=== PATIENT | male | born 1965 | race Caucasian/White ===

== ENCOUNTER 2020-11-04 07:52 | Day surgery (SDC) | payer OTHER ==
[~2020-11-04] VITALS: Ht 195.6 cm; Wt 123.5 kg
[~2020-11-04 07:52] MED LIST: IBUP200; META400 PO; NAPR500 PO; OXYACE5T PO; PROM25 PO; RXHYDACE PO
[2020-11-04] MEDS ORDERED: GABA400 PO (08:16)
[2020-11-04] MEDS ORDERED: MELO7.5 PO (08:16)
[2020-11-04] MEDS ORDERED: TERB250 PO (08:17)
[2020-11-04] MEDS ORDERED: IBUP800 PO (08:17)
[2020-11-04] MEDS ORDERED: MEMANTINE HCL PO (08:17)
--- NOTE | 2020-11-04 08:45 | NUR ---
History, Chart, Medications and Allergies reviewed before start of procedure. Lungs clear T/O to Auscultation. Patient confirms NPO status and agrees with scheduled surgery. Pre-Op teaching done. Pt verbalizes understanding. Patient states colon prep results clear.
--- NOTE | 2020-11-04 10:38 | NUR ---
11/04/20 Rachel Talley History, Chart, Medications and Allergies reviewed before start of procedure.PATIENT DETERMINED TO BE ASA APPROPRIATE FOR PROPOFOL SEDATION PRIOR TO START OF PROCEDURE BY .MONITOR INTACT WITH CONTINUOUS PULSE OXIMETRY AND INTERMITTENT BP.3-LEAD EKG REVIEWED WITH PHYSICIAN PRIOR TO START OF PROCEDURE.O2 VIA N/C INTACT THROUGHOUT SEDATION/PROCEDURE.
--- NOTE | 2020-11-04 11:06 | NUR ---
Patient up to Ambulate independently. Gait steady. Discharge instructions reviewed with patient. Patient verbalizes understanding. Copy given to patient to take home. Discharged via wheelchair to private car for ride home.
== END 2020-11-04 23:15 | disposition home or self-care (01) ==
LOC: ORSCMMR 07:52 → ORD 09:30 → ORSCMMR 09:30
DX: Z12.11 Encounter for screening for malignant neoplasm of colon (principal); K62.1 Rectal polyp; K63.5 Polyp of colon; K57.30 Diverticulosis of large intestine without perforation or abscess without bleeding; I10 Essential (primary) hypertension
CPT/HCPCS: 88305; J2704; J7120

== ENCOUNTER 2020-12-03 19:49 | Emergency (ER) | payer OTHER ==
[~2020-12-03] VITALS: Ht 172.7 cm; Wt 131.5 kg
[~2020-12-03 19:49] MED LIST changes: +GABA400 PO; +IBUP800 PO; +MELO7.5 PO; +MEMANTINE HCL PO; +TERB250 PO
[2020-12-03 20:10] LABS: Calcium, Ionized (POC) 1.09 mmol/L (1.10-1.46); Chloride (POC) 100 mmol/L (98-108); Creatinine (POC) 0.8 mg/dL (0.8-1.3); Glucose (ISTAT POC) 92 mg/dL (70-99); Hemoglobin (POC) 14.6 g/dL (13.5-17.5); Potassium (POC) 3.7 mmol/L (3.5-5.5); Sodium (POC) 136 mmol/L (135-148); Total CO2 (POC) 29 mmol/L (21-32)
[2020-12-03 20:25] LABS: BASOPHILS ABSOLUTE AUTO 0.05 K/mm3 (0.00-0.23); BASOPHILS PERCENT AUTO 1 % (0-2); EOSINOPHILS ABSOLUTE AUTO 0.21 K/mm3 (0.00-0.68); EOSINOPHILS PERCENT AUTO 2 % (0-6); Hematocrit 44.2 % (37.0-53.0); Hemoglobin 15.3 g/dL (13.5-17.5); IMMATURE GRAN ABSOLUTE AUTO 0.04 K/mm3 (0.00-0.10); IMMATURE GRAN PERCENT AUTO 0 % (0-1); LYMPHOCYTES ABSOLUTE AUTO 2.58 K/mm3 (0.84-5.20); LYMPHOCYTES PERCENT AUTO 29 % (21-46); MONOCYTES ABSOLUTE AUTO 0.78 K/mm3 (0.16-1.47); MONOCYTES PERCENT AUTO 9 % (4-13); Mean Corpuscular HGB Conc 34.6 g/dL (31.5-36.5); Mean Corpuscular Volume 87 fL (80-100); Mean Platelet Volume 9.6 fL (9.1-12.4); NEUTROPHILS ABSOLUTE AUTO 5.25 K/mm3 (1.96-9.15); NEUTROPHILS PERCENT AUTO 59 % (41-73); Platelet Count 261 K/mm3 (150-400); RDW Coefficient Variation 13.1 % (11.7-14.2); RDW Standard Deviation 40.7 fL (35.1-46.3); White Blood Cell Count 8.91 K/mm3 (4.00-11.30)
[2020-12-03 20:29] LABS: Source, Urine Catheter
[2020-12-03 20:34] LABS: Appearance, Urine Clear (Clear); Bilirubin, Urine Neg (Neg); Blood, Urine Neg (Neg); Color, Urine Amber (P-Yellow); Glucose Qualitative, Urine Neg (Neg); Ketones, Urine 1+ (Neg); Leukocyte Esterase, Urine 1+ (Neg); Nitrite, Urine Neg (Neg); Protein, Urine 2+ (Neg); Specific Gravity, Urine 1.015 (1.003-1.022); Urobilinogen, Urine NORM (Normal); pH, Urine 6.5 (5.0-8.0)
[2020-12-03 20:37] LABS: Alanine Aminotransfer (ALT/SGP 18 U/L (12-78); Albumin, Blood 3.6 g/dL (3.4-5.0); Albumin/Globulin Ratio 0.9 (0.8-1.8); Alk Phos 104 U/L (50-136); Anion Gap 8 mmol/L (6-16); Aspartate Aminotrans (AST/SGOT 21 U/L (12-37); Bilirubin, Total 0.7 mg/dL (0.1-1.0); Blood Urea Nitrogen 8 mg/dL (8-24); Bun/Creatinine Ratio 10.4 (12.0-20.0); CO2, Blood 28 mmol/L (21-32); Chloride, Blood 104 mmol/L (98-108); Creatinine, Blood 0.77 mg/dL (0.60-1.20); Globulin, Blood 3.8 g/dL (2.2-4.0); Glomerular Filtration Rate >60 (60-); Glucose, Blood 90 mg/dL (70-99); Sodium, Blood 140 mmol/L (136-145); Total Protein, Blood 7.4 g/dL (6.4-8.2)
[2020-12-03 20:50] LABS: Bacteria Not Seen /hpf; Mucus Mod (0-Heavy); Red Blood Cells, Urine Not Seen /hpf (0-2); Squamous Epithelial Cells Not Seen /hpf (Few); White Blood Cells, Urine 0-2 /hpf (0-5)
[2020-12-03 22:05] LABS: Influenza A, PCR Negative (NEGATIVE); Influenza B, PCR Negative (NEGATIVE); Resp Syncytial Virus, PCR Negative (NEGATIVE); SARS-Cov-2 (COVID-19) PCR, MMC Negative (NEGATIVE)
== END 2020-12-03 22:05 | disposition short-term general hospital (02) ==
LOC: ER 19:49
PROVIDERS: Emergency Medicine
DX: G93.6 Cerebral edema (principal); R41.82 Altered mental status, unspecified; Z79.899 Other long term (current) drug therapy; Z87.891 Personal history of nicotine dependence; Z20.822 Contact with and (suspected) exposure to COVID-19
CPT/HCPCS: 0241U; 36415; 51702; 70551; 80047; 80053; 81001; 82947; 85014; 85025; 85651; 86140; 93005; 93010; 96365-59; 99285-25; Q2009

== ENCOUNTER → 2021-05-05 | Outpatient (CLI) | payer OTHER ==
[2021-05-12 14:10] LABS: COTININE <10.0 ng/mL (.); NICOTINE <10.0 ng/mL (.)
== END | disposition home or self-care (01) ==
LOC: LAB SHORT 11:46 → LAB 11:46 → EDSTATUS 02-23 08:30 → LAB FUT 02-23 08:30
PROVIDERS: Orthopaedic Surgery
DX: Z01.818 Encounter for other preprocedural examination (principal); M17.11 Unilateral primary osteoarthritis, right knee
CPT/HCPCS: G0480

== ENCOUNTER 2021-09-06 13:18 | Day surgery (SDC) | payer OTHER ==
[~2021-09-06] VITALS: Ht 195.6 cm; Wt 126.7 kg
[2021-09-06] MEDS ORDERED: ASPI325 PO (13:46)
--- NOTE | 2021-09-06 18:12 | NUR ---
REPORT RECEIVED FROM GINGER JEAN BAPTISTEU RN.
--- NOTE | 2021-09-06 19:15 | NUR ---
POST OP: PT TO UNIT AT ABOUT 181. PT IS A/O, VSS. SURGICAL SITE WNL, PEDAL PULSES PALPABLE. PT UNABLE TO WIGGLE TOES YET DUE TO SPINAL. LUNGS ARE CLEAR, PT DEEP BREATHES ON COMMAND. PT IN ROOM AND ABLE TO DO HEALTH HX. REPORT PASSED TO ALEJO SEGAL RN.
--- NOTE | 2021-09-07 04:20 | NUR ---
SHIFT SUMMARY: PT POD#1 FOR A RT TKA. PT A&O X4. [place]. AQUACEL+ROBIN WRAP DRESSING C/D/I WITH POLAR PACK IN PLACE. PT AMBULATING TO BATHROOM WITH MINIMAL ASSIST AND FWW+GB. AMBULATED IN HALLWAY ONCE. TOLERATING ACTIVITY WELL. PAIN BEING MANAGED WITH 10MG OXY AND SCHEDULED TORADOL AND TYLENOL PER EMAR. PT VOIDING WELL. ANUPAMA PO AND DENIES N/V. PLAN FOR PHYSICAL THERAPY TODAY AND POSSIBLE DISCHARGE HOME. TO COME IN FOR PHYSICAL THERAPY SESSION.
[2021-09-07 04:30] LABS: BASOPHILS ABSOLUTE AUTO 0.01 K/mm3 (0.00-0.23); BASOPHILS PERCENT AUTO 0 % (0-2); EOSINOPHILS PERCENT AUTO 0 % (0-6); Hematocrit 37.4 % (37.0-53.0); Hemoglobin 13.1 g/dL (13.5-17.5); IMMATURE GRAN ABSOLUTE AUTO 0.06 K/mm3 (0.00-0.10); IMMATURE GRAN PERCENT AUTO 1 % (0-1); LYMPHOCYTES ABSOLUTE AUTO 1.14 K/mm3 (0.84-5.20); LYMPHOCYTES PERCENT AUTO 9 % (21-46); MONOCYTES ABSOLUTE AUTO 0.55 K/mm3 (0.16-1.47); MONOCYTES PERCENT AUTO 4 % (4-13); Mean Corpuscular HGB 30.3 pg (26.0-34.0); Mean Corpuscular Volume 86 fL (80-100); Mean Platelet Volume 9.8 fL (9.1-12.4); NEUTROPHILS ABSOLUTE AUTO 11.35 K/mm3 (1.96-9.15); NEUTROPHILS PERCENT AUTO 87 % (41-73); Platelet Count 214 K/mm3 (150-400); RDW Coefficient Variation 13.5 % (11.7-14.2); RDW Standard Deviation 42.3 fL (35.1-46.3); Red Blood Cell Count 4.33 M/mm3 (4.30-5.90); White Blood Cell Count 13.11 K/mm3 (4.00-11.30)
[2021-09-07 04:44] LABS: Anion Gap 6 mmol/L (6-16); Blood Urea Nitrogen 14 mg/dL (8-24); Bun/Creatinine Ratio 15.6 (12.0-20.0); CO2, Blood 26 mmol/L (21-32); Calcium, Blood 8.6 mg/dL (8.5-10.1); Chloride, Blood 105 mmol/L (98-108); Glomerular Filtration Rate >60 (60-); Glucose, Blood 131 mg/dL (70-99); Potassium, Blood 4.3 mmol/L (3.5-5.5); Sodium, Blood 137 mmol/L (136-145)
[2021-09-07] MEDS ORDERED: Percocet 5-3251 EACH PO (09:34)
--- NOTE | 2021-09-07 15:23 | NUR ---
DISCHARGE PATIENT DISCHARGED IN STABLE CONDITION HOME. PATIENT'S AT BEDSIDE FOR DISCHARGE INSTRUCTIONS, PATIENT AND VERBALIZED UNDERSTANDING OF INSTRUCTIONS. PERIPHERAL IV REMOVED, ALL BELONGINGS PACKED AND SENT WITH FAMILY.
== END 2021-09-07 15:16 | disposition home or self-care (01) ==
LOC: ORSCMMR 13:18 → ORD 15:00 → SURS 18:34 → ORSCMMR 09-07 15:16
PROVIDERS: Orthopaedic Surgery
PROC: 8E0Y0CZ Robotic Assisted Procedure of Lower Extremity, Open Approach (ICD-10-PCS; principal; 2021-09-06 15:00)
PROC: 0SRC0JA Replacement of Right Knee Joint with Synthetic Substitute, Uncemented, Open Approach (ICD-10-PCS; principal; 2021-09-06 15:00)
DX: M17.11 Unilateral primary osteoarthritis, right knee (principal); Z79.899 Other long term (current) drug therapy; Z79.82 Long term (current) use of aspirin; E66.9 Obesity, unspecified; Z68.33 Body mass index [BMI] 33.0-33.9, adult
CPT/HCPCS: 27447; S2900; 36415; 73560-RT; 80048; 85025; 97110; 97116; 97162; 97530; A9270; C1776; J0171; J0690; J0735; J1885; J2250; J2704; J2795; J3010; J7120

== ENCOUNTER 2022-01-31 06:56 | Day surgery (SDC) | payer OTHER ==
[~2022-01-31] VITALS: Ht 195.6 cm; Wt 138.4 kg
[~2022-01-31 06:56] MED LIST changes: +ASPI325 PO; +Percocet 5-3251 EACH PO
--- NOTE | 2022-01-31 08:08 | NUR ---
Ambulatory in [facility] warming gown applied. Surgical site prepped with 2% Chlorhexidine cloth wipe. History, Chart, Medications and Allergies reviewed before start of procedure.History, Chart, Medications and Allergies reviewed before start of procedure.Lungs clear T/O to Auscultation. Patient confirms NPO status and agrees with scheduled surgery. Pre-Op teaching done. Pt verbalizes understanding. Patient States Post-Procedure ride home has been arranged. Patient reports completing Chlorhexadine shower X2 prior to admission to hospital.
--- NOTE | 2022-01-31 19:03 | NUR ---
SHIFT SUMMARY POD0 L TKA, A/O X4 THOUGH PT DOES HAVE SOME COGNITIVE DEFICITS R/T PRIOR TBI, WORKED WITH PHYSICAL THERAPY TODAY AND PLAN TO DO ANOTHER SESSION WITH THEM TOMORROW c PRESENT, PAIN SCRIPT GIVEN TO PT TO FILL BEFORE DISCHARGE TOMORROW. PAIN MANAGED, AMBULATING, VOIDING. NO ACUTE EVENTS THIS SHIFT, CALL LIGHT IN REACH, REPORT GIVEN TO ALEJO RN.
[2022-02-01 05:15] LABS: BASOPHILS ABSOLUTE AUTO 0.02 K/mm3 (0.00-0.23); BASOPHILS PERCENT AUTO 0 % (0-2); EOSINOPHILS ABSOLUTE AUTO 0.06 K/mm3 (0.00-0.68); EOSINOPHILS PERCENT AUTO 0 % (0-6); Hematocrit 40.7 % (37.0-53.0); Hemoglobin 14.7 g/dL (13.5-17.5); IMMATURE GRAN PERCENT AUTO 1 % (0-1); LYMPHOCYTES ABSOLUTE AUTO 1.62 K/mm3 (0.84-5.20); LYMPHOCYTES PERCENT AUTO 11 % (21-46); MONOCYTES ABSOLUTE AUTO 1.02 K/mm3 (0.16-1.47); MONOCYTES PERCENT AUTO 7 % (4-13); Mean Corpuscular HGB 30.2 pg (26.0-34.0); Mean Corpuscular HGB Conc 36.1 g/dL (31.5-36.5); Mean Corpuscular Volume 84 fL (80-100); Mean Platelet Volume 9.4 fL (9.1-12.4); NEUTROPHILS ABSOLUTE AUTO 12.66 K/mm3 (1.96-9.15); NEUTROPHILS PERCENT AUTO 82 % (41-73); Platelet Count 175 K/mm3 (150-400); RDW Coefficient Variation 12.9 % (11.7-14.2); RDW Standard Deviation 39.4 fL (35.1-46.3); Red Blood Cell Count 4.86 M/mm3 (4.30-5.90); White Blood Cell Count 15.48 K/mm3 (4.00-11.30)
--- NOTE | 2022-02-01 05:23 | NUR ---
SHIFT SUMMARY PT S/P LEFT KNEE REPLACEMENT YESTERDAY. PT MEDICATED FOR PAIN PER EMAR, PAIN BEGAN TO EASE SHIFT PROGRESSED. PT ABLE TO AMBULATE WELL WITH SBA USING FWW. DRESSING INTACT TO SURGICAL SITE C/D. CRYOTHERAPY, SCDS, AND JERZY HOSE IN PLACE T/O SHIFT. PT HAS AMBULATED IN THE HALLWAY THIS SHIFT. POST OP VITALS STABE. PT HAS HAD A RESTFUL NIGHT, PLAN FOR DISCHARGE TODAY. BED IN LOWEST POSITION, CALL LIGHT WITHIN REACH.
[2022-02-01 05:32] LABS: Anion Gap 8 mmol/L (6-16); Blood Urea Nitrogen 13 mg/dL (8-24); CO2, Blood 25 mmol/L (21-32); Calcium, Blood 8.7 mg/dL (8.5-10.1); Chloride, Blood 104 mmol/L (98-108); Creatinine, Blood 0.76 mg/dL (0.60-1.20); Glomerular Filtration Rate >60 (60-); Glucose, Blood 115 mg/dL (70-99); Potassium, Blood 4.3 mmol/L (3.5-5.5); Sodium, Blood 137 mmol/L (136-145)
[2022-02-01] MEDS ORDERED: Percocet 5-3251 EACH PO (09:15)
--- NOTE | 2022-02-01 12:16 | NUR ---
DISCHARGE NOTE: PATIENT WAS EDUCATED ON DISCHARGE INSTRUCTIONS. HE VERBALIZED UNDERSTANDING OF INSTRUCTIONS. PATIENTS ALREADY TOOK HIS HARD PERSCRIPTION HOME YESTERDAY. IV WAS TAKEN OUT AND WNL. PAIN IS MANAGED WITH PO PAIN MEDS. LEFT KNEE HAS ROBIN WRAP AND AQUACEL THAT IS C/D/I. HE IS A SBA WITH FWW AND GAIT BELT. PATIENT IS TOLERATING PO INTAKE AND IS VOIDING. HE IS DRESSED AND HAS ITEMS IN THE ROOM GATHERED. HE IS WAITING FOR HIS TO COME PICK HIM UP TO TAKE HIM HOME.
--- NOTE | 2022-02-01 13:53 | NUR ---
PATIENT WAS JUST WHEELCHAIRED OUT TO HIS WIFES CAR TO BE TAKEN HOME. HE HAD ALL OF HIS PERSONAL ITEMS.
== END 2022-02-01 13:53 | disposition home or self-care (01) ==
LOC: ORSCMMR 06:56 → ORD 08:15 → ORSCMMR 08:15 → SURS 12:02 → ORSCMMR 12:02 → SURS 02-01 13:53 → ORSCMMR 02-01 13:53 → ORD 02-28 09:45
PROVIDERS: Orthopaedic Surgery
PROC: 0SRD0JA Replacement of Left Knee Joint with Synthetic Substitute, Uncemented, Open Approach (ICD-10-PCS; principal; 2022-01-31 08:15)
PROC: 8E0Y0CZ Robotic Assisted Procedure of Lower Extremity, Open Approach (ICD-10-PCS; principal; 2022-01-31 08:15)
DX: M17.12 Unilateral primary osteoarthritis, left knee (principal); Z96.651 Presence of right artificial knee joint; I10 Essential (primary) hypertension; E66.9 Obesity, unspecified; Z68.35 Body mass index [BMI] 35.0-35.9, adult; Z87.891 Personal history of nicotine dependence; Z86.73 Personal history of transient ischemic attack (TIA), and cerebral infarction without residual deficits; Z79.899 Other long term (current) drug therapy; Z79.82 Long term (current) use of aspirin
CPT/HCPCS: 27447; S2900; 36415; 73560-LT; 80048; 85025; 97110; 97116; 97162; A9270; C1776; J0171; J0690; J0735; J1100; J1885; J2250; J2370; J2704; J2795; J3010; J7120

== ENCOUNTER → 2024-12-29 | Outpatient (CLI) | payer MEDICARE, OTHER ==
[2024-12-29 17:35] LABS: BASOPHILS ABSOLUTE AUTO 0.02 K/mm3 (0.00-0.23); BASOPHILS PERCENT AUTO 0 % (0-2); EOSINOPHILS ABSOLUTE AUTO 0.16 K/mm3 (0.00-0.68); EOSINOPHILS PERCENT AUTO 2 % (0-6); Hematocrit 38.1 % (37.0-53.0); Hemoglobin 12.8 g/dL (13.5-17.5); IMMATURE GRAN ABSOLUTE AUTO 0.03 K/mm3 (0.00-0.10); IMMATURE GRAN PERCENT AUTO 0 % (0-1); LYMPHOCYTES ABSOLUTE AUTO 1.41 K/mm3 (0.84-5.20); LYMPHOCYTES PERCENT AUTO 18 % (21-46); MONOCYTES ABSOLUTE AUTO 0.49 K/mm3 (0.16-1.47); MONOCYTES PERCENT AUTO 6 % (4-13); Mean Corpuscular HGB 30.2 pg (26.0-34.0); Mean Corpuscular HGB Conc 33.6 g/dL (31.5-36.5); Mean Corpuscular Volume 90 fL (80-100); Mean Platelet Volume 10.1 fL (9.1-12.4); NEUTROPHILS PERCENT AUTO 73 % (41-73); Platelet Count 215 K/mm3 (150-400); RDW Standard Deviation 45.7 fL (35.1-46.3); Red Blood Cell Count 4.24 M/mm3 (4.30-5.90); White Blood Cell Count 7.71 K/mm3 (4.00-11.30)
[2024-12-30 17:44] LABS: HIV 1,2 COMBO ANTIGEN/ANTIBODY Negative (Negative)
[2024-12-30 18:01] LABS: HEPATITIS C AB CIA INTERP Negative (Negative); HEPATITIS C ANTIBODY CIA INDEX 0.13 IV
== END ==
LOC: LAB SHORT 16:05 → LAB 16:05
PROVIDERS: Family Medicine
DX: Z11.59 Encounter for screening for other viral diseases (principal); Z11.4 Encounter for screening for human immunodeficiency virus [HIV]; Z12.5 Encounter for screening for malignant neoplasm of prostate; E55.9 Vitamin D deficiency, unspecified; D64.9 Anemia, unspecified
CPT/HCPCS: 82306; 85025; 86803; 87389; G0103